=== PATIENT | male | born 1940 | race Caucasian/White ===

== ENCOUNTER 2017-06-18 09:56 | Emergency (ER) | payer MEDICARE ==
[~2017-06-18] VITALS: Ht 185.4 cm; Wt 95.3 kg
[2017-06-18 09:56] VITALS: BP 161/92
--- NOTE | 2017-06-18 09:56 | NUR ---
BB LAST PICKER: S/P WITNESSED SYNCOPE, ASSISTED TO THE GROUND. NAD NOTED. PT AAO X3, VSS. RR EVEN AND UNLABORED. DR BORJA AT BEDSIDE FOR EVAL.
[2017-06-18 10:32] LABS: BASOPHILS # (AUTO) 0.1 /CMM (0.0-0.2); BASOPHILS % (AUTO) 1.4 % (0.0-2.0); CALCIUM, SERUM 8.3 mg/dL (8.5-10.1); CARBON DIOXIDE 21 mmol/L (21-32); CHLORIDE 108 mmol/L (98-107); CREATININE 1.7 mg/dL (0.6-1.3); EOSINOPHILS # (AUTO) 0.1 /CMM (0.0-0.7); GLUCOSE 202 mg/dL (74-106); HEMATOCRIT 30 % (39-51); LYMPHOCYTES # (AUTO) 1.8 /CMM (0.8-4.8); LYMPHOCYTES % (AUTO) 25.7 % (20.0-44.0); MEAN CORPUSCULAR HEMOGLOBIN 38 PG (26.0-33.0); MEAN CORPUSCULAR HGB CONC 34 g/dl (31.0-36.0); MEAN CORPUSCULAR VOLUME 114 fL (80-96); MONOCYTES # (AUTO) 0.4 /CMM (0.1-1.30); MONOCYTES % (AUTO) 5.6 % (2.0-12.0); NEUTROPHILS # (AUTO) 4.7 /CMM (1.8-8.9); NEUTROPHILS % (AUTO) 66.3 % (43.0-81.0); PLATELET COUNT (AUTO) 236 /CMM (150-450); POTASSIUM 4.7 mmol/L (3.5-5.1); RDW COEFFICIENT OF VARIATION 16.8 (11.5-15.0); RED BLOOD CELL COUNT(AUTO) 2.61 MIL/uL (4.5-6.0); SODIUM SERUM 138 mmol/L (136-145); UREA NITROGEN, BLOOD 44 mg/dL (7-18); WHITE BLOOD COUNT (AUTO) 7.1 K/uL (4.3-11.0)
[2017-06-18 10:36] LABS: ALANINE AMINOTRANSFERASE 21 U/L (12-78); ALBUMIN 3.9 g/dL (3.4-5.0); ALKALINE PHOSPHATASE 98 U/L (46-116); ASPARTATE AMINOTRANSFERASE 19 U/L (15-37); BILIRUBIN,DIRECT 0.2 mg/dL (0.0-0.2); BILIRUBIN,TOTAL 0.8 mg/dL (0.2-1.0); TOTAL PROTEIN, SERUM 7.2 g/dL (6.4-8.2)
[2017-06-18 10:39] LABS: TROPONIN I 0.071 ng/mL (0.00-0.056)
--- NOTE | 2017-06-18 10:52 | NUR ---
URINE OBTAINED SENT TO LAB
[2017-06-18 10:58] LABS: APPEARANCE,URINE Turbid (CLEAR); BILIRUBIN,URINE Negative (NEGATIVE); BLOOD, URINE Moderate Ery/uL (NEGATIVE); KETONES,URINE Negative (NEGATIVE); LEUKOCYTE ESTERASE ,URINE Small (NEGATIVE); NITRITE, URINE Positive (NEGATIVE); PH,URINE 7.5 (5.0-8.0); PROTEIN,URINE >=300 mg/dl (NEGATIVE); UGLUCOSE Negative (NEGATIVE); UROBILINOGEN,URINE 0.2 EU/dL (0.2)
[2017-06-18 11:01] LABS: COLOR,URINE Dark Yellow (YELLOW)
[2017-06-18 11:11] LABS: BACTERIA,URINE Moderate /HPF (None Seen); SQUAMOUS EPITHELIAL CELL,UR Few /HPF (None Seen); WBC,URINE 21-50 /HPF (0-3)
--- NOTE | 2017-06-18 11:30 | NUR ---
PT AT BEDSIDE
[2017-06-18 11:48] LABS: BAND % (MANUAL) 1 % (0.0-5.0); EOSINOPHILS % (MANUAL) 1 % (0-4); LYMPHOCYTES % (MANUAL) 27 % (16-48); MONOCYTES % (MANUAL) 2 % (0-11.0); NEUTROPHILS % (MANUAL) 69 (42-76)
[2017-06-18] MEDS ORDERED: GLIP5TAB13 PO (12:05)
[2017-06-18] MEDS ORDERED: LEVO75TA PO (12:05)
[2017-06-18] MEDS ORDERED: INSU100V7 SQ (12:05)
--- NOTE | 2017-06-18 12:42 | NUR ---
DR HANNA PICKENS PAGED AT [phone] REGARDING PT REQUEST TO TRANSFER
--- NOTE | 2017-06-18 12:54 | NUR ---
CALL BACK FROM DR PICKENS, SHE'S TRYING TO GET [facility] AND HOPING THAT SHE'LL HAVE AN ANSWER IN 20 MINUTES. PATIENT AND FAMILY INFORMED OF DEVELOPMENTS.
--- NOTE | 2017-06-18 14:03 | NUR ---
ADMITTING MD FOR [facility] DR BARRON [phone]
--- NOTE | 2017-06-18 14:15 | NUR ---
CALLED [facility],SPOKE WITH JADON REGARDING PATIENT'S REQUEST FOR [place], FACESHEET FAXED REQUESTED
--- NOTE | 2017-06-18 14:53 | NUR ---
Patient does not wish to proceed with medical care recommended by Dr. JUARES ). Patient given information related to possible complications, up to and including , which could occur as a result of leaving the hospital at this time. Patient verbalizes understanding of risks involved due to leaving against medical advice. Patient has signed AMA form.
== END 2017-06-18 14:52 | disposition left against medical advice (07) ==
LOC: ER 09:58
DX: R55 Syncope and collapse (principal); E11.65 Type 2 diabetes mellitus with hyperglycemia; E03.9 Hypothyroidism, unspecified; N28.9 Disorder of kidney and ureter, unspecified; D64.9 Anemia, unspecified; Z79.4 Long term (current) use of insulin; Z93.6 Other artificial openings of urinary tract status; Z88.1 Allergy status to other antibiotic agents
CPT/HCPCS: 36415; 71010-TC; 80048-TC; 80076-TC; 81000-TC; 84484-TC; 85025-TC; 87086-TC; 87186-TC; A4606; Z7610